=== PATIENT | male | born 1965 | race Caucasian/White ===

== ENCOUNTER 2018-12-23 10:24 | Observation (INO) | payer MEDICARE ==
[2018-12-23] VITALS (7 sets, daily range): BP systolic 113–152; BP diastolic 60–90; Ht 175.3 cm; Wt 135.5 kg
[~2018-12-23] VITALS: Ht 175.3 cm; Wt 135.5 kg
--- NOTE | ~2018-12-23 | ST ---
PATIENT:LANNY WILLIS III MEDICAL RECORD: [id number] SEX: M LOCATION:D. D.212 ORDER #: ADMISSION DATE: 12/23/18 AGE OF PATIENT: 53 REFERRING PHYSICIAN: INTERPRETING PHYSICIAN: REENA ALEXANDER MD DATE OF SERVICE: 12/24/2018 Nuclear Stress Test INDICATIONS: Angina, cardiomyopathy. He was exercised on standard Lexiscan protocol with 28 mCi of sestamibi injected at peak stress, 9 mCi used previously for rest images. FINDINGS: Gated SPECT reveals a dilated cardiomyopathy, ejection fraction markedly reduced at 33%. SPECT Imaging: Cardiolite was used as myocardial perfusion agent. There is reversibility inferiorly as well as anteriorly, which includes the basal, mid, apical anterior segments as well as the inferior basal, mid and apical segments. The degree of reversibility is mild. The amount of myocardium involved is large. OVERALL IMPRESSION: High-risk nuclear stress test revealing an ischemic cardiomyopathy, ejection fraction 33% with LV dilatation and reversibility anteriorly and inferiorly, possibly suggestive of multivessel coronary artery disease making this a high-risk nuclear stress test. Would proceed with coronary angiography as followup study. TRANSINT:[id number] Voice Confirmation ID: [id number] DOCUMENT ID: [id number] REENA ALEXANDER MD CC: [id number] DICTATION DATE: 12/24/18 1710 METALSMITH APPRENTICE: 12/25/18 0026 ADM IN [facility] [address] [id number]
--- NOTE | ~2018-12-23 | OP ---
PATIENT NAME: LANNY WILLIS III MEDICAL RECORD: [id number] :67 LOCATION:D.M2 D.2121 ADMISSION DATE:12/23/18 SURGEON: REENA ALEXANDER MD DATE OF OPERATION: 12/25/2018 PROCEDURES: 1. Left heart catheterization. 2. Selective coronary angiography. 3. Left ventriculogram. INDICATION: Cardiomyopathy, abnormal nuclear stress test, supraventricular tachycardia. PROCEDURE IN DETAIL: After informed consent was obtained and after a detailed description of risks, benefits as well as alternative therapies, the patient elected to proceed with angiogram and heart catheterization. Right radial area was prepped and draped in normal sterile fashion. Right radial artery was cannulated via modified Seldinger technique with placement of 5-Swedish sheath. All catheters exchanged through this sheath. FINDINGS: Left ventriculogram was performed in standard 30-degree SIMON view reveals dilated cardiomyopathy, ejection fraction 35%. SELECTIVE CORONARY ANGIOGRAPHY: Left main, left anterior descending, left circumflex, right coronary artery are all smooth-walled vessels with no angiographic evidence of coronary artery disease. OVERALL IMPRESSION: 1. No angiographic evidence of coronary artery disease. 2. Nonischemic cardiomyopathy, ejection fraction 35%. Center medical management and treatment of hypertension and cardiomyopathy. TRANSINT:[id number] Voice Confirmation ID: [id number] DOCUMENT ID: [id number] REENA ALEXANDER MD CC: [id number] DICTATION DATE: 12/25/18899 DIRECTOR SPECIALTY: 12/25/18 1157 DIS IN 12/25/18 [facility] [address] [place] [address]
--- NOTE | ~2018-12-23 | EC ---
PATIENT:LANNY WILLIS III DATE OF SERVICE: 12/23/18 SEX: M MEDICAL RECORD: [id number] DATE OF : 67 LOCATION:D.M2 D.212 AGE OF PATIENT: 53 ADMISSION DATE: 12/23/18 REFERRING PHYSICIAN: INTERPRETING PHYSICIAN: REENA HUMPHREY MD ECHOCARDIOGRAM REPORT ECHO CHARGES 4 ECHO COMPLETE Date: 12/23/18 CLINICAL DIAGNOSIS: SVT ECHOCARDIOGRAPHIC MEASUREMENTS (adult normal given) AC root (d.<3.7cm) 3.4 cm LV Septum d (<1.2 cm> 0.8 cm Valve Excursion 2.2 cm LV Septum (systole) 1.0 cm Left Atria (s.<4.0cm> 5.1 cm LVPW d(<1.2cm) 2.2 cm RV (d.<2.3cm) 3.8 cm LVPW (sytole) 2.6 cm LV diastole(<5.6CM) 7.8 cm MV E-F(>70mm/sec) cm LV systole 6.7 cm LVOT Diameter 1.8 cm MV exc.(>10mm) cm Est.ejection fraction (50-75%) % DOPPLER: LVIT cm/sec A 29 cm/sec E 84 cm/sec LA cm/sec RVSP 23.0 mmHg LVOT 63 cm/sec AOP1/2T m/s Asc. Ao 131 cm/sec RVOT 46 cm/sec RA cm/sec PA 63 cm/sec AV Gradient Peak 6.8 mmHg AV Mean 4.4 mmHg AV Area 1.4 cm MV Gradient Peak 3.6 mmHg MV Mean 1.3 mmHg MV Area cm COMMENTS: Autocad Designer: Deandre PHILLIPS Qa Manager: 1 Dr. Humprhey TAPE# PACS Pericardial Effusion N DATE OF SERVICE: 12/23/2018 FINDINGS: 1. Left ventricular chamber size is moderately dilated. Left ventricular systolic function is mildly reduced. Overall ejection fraction is 40%. 2. Left atrium is enlarged at 5.1 cm. Right atrium and right ventricular chamber sizes are as well mildly dilated. 3. Valvular structures have normal structure and motion. 4. Doppler interrogation reveals ggci-vz-uhuycuus mitral regurgitation and mild tricuspid regurgitation. No other valvular insufficiency or stenosis. ECHOCARDIOGRAM REPORT [id number] LANNY WILLIS III Pulmonary systolic pressure is estimated at 23 mmHg. 5. No evidence of pericardial effusion or left ventricular thrombus. TRANSINT:[id number] Voice Confirmation ID: [id number] DOCUMENT ID: [id number] REENA HUMPHREY MD CC: [id number] DICTATION DATE: 12/23/18 1446 SENIOR RESIDENT CARE DIRECTOR: 12/23/18 1709 ADM IN [facility] [address] [place] [address]
--- NOTE | ~2018-12-23 | HEMODYNAMI ---
PATIENT:LANNY WILLIS III MEDICAL RECORD: [id number] : 67 LOCATION:[facility] D.2121 [facility]# [id number] ADMISSION DATE: 12/23/18 Generatedon:12/25/20188:59 Patient name: LANNY WILLIS Patient #: [id number] SSN: [id number] : 1965 Date of study: 12/25/2018 Page: Of Hemodynamic Procedure Report Patient Data Patient Demographics Procedure consent was obtained First Name: LANNY Gender: Male Last Name: LAZARO Suffix: TERRENCE Middle Initial: M : 1965 Patient #: [id number] Age: 53 year(s) Race: SSN: [id number] Additional ID: [id number] Contact details [address]: [address] [place] [address] State: [place] City: [place] Zip code: [address] Admission Admission Data Admission Date: 12/23/2018 Admission Time: 12:21 Arrival Date: 12/23/2018 Arrival Time: 12:21 Admit Source: Other Insurance Payor: Private Room #: D.2121 health insurance Height (in.): 68.9 BSA: 2.44 (m2) Height (cm.): 175 BMI: 44.08 (kg/m2) Weight (lbs.): 297.63 Weight (kg.): 135 Lab Results Lab Result Date: 12/25/2018 Lab Result Time: 0:00 Biochemistry Name Units Result Min Max BUN mg/dl 6 -*(----)-- 7 18 Creatinine mg/dl 0.9 --(-*--)-- 0.6 1.3 CBC Name Units Result Min Max Hemoglobin g/dl 17 --(---*)-- 13.5 17.5 Procedure Procedure Types Cath Procedure Diagnostic Procedure LHC LHC w/Coronaries Sedation Charges Moderate Sedation up to 15 minutes Procedure Description Procedure Date Procedure Date: 12/25/2018 Procedure Start Time: 8:50 Procedure End Time: 8:57 Procedure Staff Name Function Ben Humphrey MD Performing Physician Jina Mcgowan RT Monitor Maryan Matos RT Scrub Sandra Roberto RN Nurse Procedure Data Cath Procedure Fluoroscopy Diagnostic fluoroscopy Total fluoroscopy Time: 1.1 time: 1.1 min min Diagnostic fluoroscopy Total fluoroscopy dose: 391 dose: 391 mGy mGy Contrast Material Contrast Material Type Amount (ml) Isovue 300 34 Entry Location Entry Primary Successful Side Size Upsize Upsize Entry Closure Hernandez ccessful Closure Location (Fr) 1 (Fr) 2 (Fr) Remarks Device Remarks Radial Right 6 Fr Mechanical artery Short Compression Estimated blood loss: 5 ml Diagnostic catheters Device Type Used For End Catheter Placement DIAGNOSTIC [place] 110cm 5 Multi-vessel Fr catheter ([id number]) Angiography Procedure Complications No complications Procedure Medications Medication Administration Route Dosage 0.9% NaCl I.V. 100 ml/hr Oxygen etCO2 Nasal cannula 2 l/min Lidocaine 2% added to field 20 Heparin Flush Bag added to field 2 bags (1000units/500ml NS) Radial Cocktail added to field 1 syringe (Verapamil 2mg/Nitro 400mcg/Heparin 1500units) Versed I.V. 2 mg Fentanyl I.V. 50 mcg Versed I.V. 2 mg Fentanyl I.V. 50 mcg Hemodynamics Rest BSA: 2.44 (m2) HGB: 17 (g/dl) O2 Consumption: Estimated: 322.97 (ml/min) O2 Cons umption indexed: Estimated:132.36 (ml/min/m) Heart Rate: 105 (bpm) Pressure Samples Time Site Value (mmHg) Purpose Heart Use Rate(bpm) 8:53 LV 55/49,50 Snapshot 104 Snapshots Pre Cath Intra NCS Post Cath Vital Signs Time Heart Resp SPO2 etCO2 NIBP (mmHg) Rhythm Pain Sedation Rate (ipm) (%) (mmHg) Status Level (bpm) 8:24:29 111 20 95 30.7 158/116(131) NSR 0 (11) 10(A) , No pain 8:28:45 109 19 95 31.4 152/116(131) NSR 0 (11) 10(A) , No pain 8:32:53 101 21 96 26.9 153/105(127) NSR 0 (11) 10(A) , No pain 8:37:01 100 19 95 31.4 151/111(129) NSR 0 (11) 10(A) , No pain 8:41:07 102 18 95 29.9 152/109(122) NSR 0 (11) 10(A) , No pain 8:45:12 104 21 96 33.7 152/113(134) NSR 0 (11) 10(A) , No pain 8:49:18 108 18 96 32.2 153/113(131) NSR 0 (11) 10(A) , No pain 8:53:24 102 19 96 30.7 145/106(124) NSR 0 (11) 10(A) , No pain 8:57:28 103 19 88 26.9 143/104(123) NSR 0 (11) 10(A) , No pain Medications Time Medication Route Dose Verified Delivered Reason Notes Ef fectiveness by by 8:23:27 0.9% NaCl I.V. 100 Ben Sandra used for ml/hr Kam Roberto offset lithographic press setter 8:23:33 Oxygen etCO2 2 l/min Ben Sandra used for Nasal Kam Roberto procedure cannula RN 8:23:38 Lidocaine 2% added 20ml Ben Ben for local to vial Kam Humphrey MD anesthetic field 8:23:44 Heparin Flush added 2 bags Benphil Contreras used for Bag to Kam Humphrey MD procedure (1000units/500ml field NS) 8:23:49 Radial Cocktail added 1 Ben Ben used for (Verapamil to syringe Kam Humphrey MD procedure 2mg/Nitro field 400mcg/Heparin 1500units) 8:50:37 Versed I.V. 2 mg Ben Sandra for Kam Roberto sedation RN 8:50:42 Fentanyl I.V. 50 mcg Ben Sandra for Kam Roberto sedation RN 8:54:31 Versed I.V. 2 mg Ben Sandra for Kam Roberto sedation RN 8:54:38 Fentanyl I.V. 50 mcg Ben Sandra for Kam Roberto sedation reset merchandiser Log Time Note 7:53:19 Diagnostic Cath Status : Elective 7:55:33 ACC Patient presents with Non-STEMI CCS Anginal Class 3--Marked limitation of physical activity, angina occurs with ordinary activity.. 7:56:06 Procedure Status Urgent Heart Cath (IP). 7:57:30 Jina Mcgowan RT(R) sent for patient. Start room use. 7:57:31 Time tracking: Regular hours (M-F 7:00 - 5:00) 7:57:36 Plan of Care:Hemodynamics will remain stable., Cardiac rhythm will remain stable., Comfort level will be maintained., Respiratory function will remain adequate., Patient/ family verbilizes understanding of procedure., Procedure tolerated without complication., Recovers from procedure without complications.. 7:58:44 Informed consent obtained and on chart 8:00:40 Admit Source: Other 8:00:43 Arrival Date: 12/23/2018 12:21:00 PM 8:01:07 Insurance Payor : Private health insurance 8:02:31 Patient Weight : 297.63 lbs 8:02:55 Patient Height : 68.9 inches 8:03:36 Lab Result : Creatinine 0.9 mg/dl 8:03:36 Lab Result : BUN 6 mg/dl 8:03:36 Lab Result : Hemoglobin 17 g/dl 8:23:14 Vital chart was started 8:23:27 0.9% NaCl 100 ml/hr I.V. was administered by Sandra Roberto RN; used for procedure; 8:23:33 Oxygen 2 l/min etCO2 Nasal cannula was administered by Sandra Roberto RN; used for procedure; 8:23:38 Lidocaine 2% 20ml vial added to field was administered by Ben Humphrey MD; for local anesthetic; 8:23:44 Heparin Flush Bag (1000units/500ml NS) 2 bags added to field was administered by Ben Humphrey MD; used for procedure; 8:23:49 Radial Cocktail (Verapamil 2mg/Nitro 400mcg/Heparin 1500units) 1 syringe added to field was administered by Ben Humphrey MD; used for procedure; 8:30:53 Patient received from Med II to CCL 2 Alert and oriented. Tansferred to table in Supine position. 8:30:54 Warm blankets applied, and kizzy hugger turned on for patient comfort. 8:30:54 Correct patient and procedure confirmed by team. 8:30:55 ECG and BP/O2 sat monitors applied to patient. 8:30:56 Baseline sample Acquired. 8:31:06 Rhythm: sinus tachycardia 8:31:08 Full Disclosure recording started 8:31:28 H&P Date Dictated: 12/25/2018 New H&P dictated by physician.. 8:31:30 Pre-procedure instructions explained to patient. 8:31:30 Pre-op teaching completed and patient verbalized understanding. 8:31:32 Family in waiting room. 8:31:34 Patient NPO since Midnight. 8:31:36 Is the patient allergic to Iodine/contrast media? No. 8:31:44 Was the patient premedicated? No 8:31:46 Is patient on blood thinner?No 8:31:49 Patient diabetic? No. 8:33:07 Previous problem with sedation/anesthesia? No ? 8:33:09 Snore? Yes 8:33:11 Sleep apnea? No 8:33:12 Deviated septum? No 8:33:12 Opens mouth fully? Yes 8:33:14 Sticks out tongue? Yes 8:33:17 Airway obstruction? No ? 8:33:21 Dentures? No ? 8:33:54 Pre procedure: right dorsailis pedis pulse 2+ Normal; easily identifiable; not easily obliterated 8:33:58 Pre procedure: left dorsailis pedis pulse 2+ Normal; easily identifiable; not easily obliterated 8:34:00 Patient pain scale 0/10 ?. 8:34:24 IV patent on arrival in left forearm with 0.9% NaCl at [facility]. 8:34:26 Lab results completed and on chart. 8:34:41 Right Radial & Right Groin area was prepped with chlora-prep and draped in sterile fashion 8:34:42 Alarms reviewed by R. N. 8:34:42 Sharps counted by scrub and verified by R.N. 8:43:00 Physician paged 8:50:12 Physician arrived 8:50:12 --------ALL STOP TIME OUT------ 8:50:13 Final Timeout: patient, procedure, and site verified with staff and physician. All members of the team are in agreement. 8:50:15 Right Radial & Right Groin site verified by team. 8:50:18 Fire Safety Assessment: A--An alcohol-based skin anteseptic being used preoperatively., C--Open oxygen or nitrous oxide is being used., D--An ESU, laser, or fiber-optic light is being used. 8:50:21 Physical assessment completed. ASA score P 2 - A patient with mild systemic disease as per Ben Humphrey MD. 8:50:32 1) 90+ Normal kidney functon but urine findings or structural abnormalities or genetic trait point to kidney disease. 8:50:37 Versed 2 mg I.V. was administered by Sandra Roberto RN; for sedation; 8:50:37 Maximum allowable contrast dose (3.7 X eGFR X 0.75)250 ml. 8:50:40 Sedation plan: IV Moderate Sedation Medication:Versed, Fentanyl 8:50:42 Fentanyl 50 mcg I.V. was administered by Sandra Roberto RN; for sedation; 8:50:43 Procedure started. 8:50:53 Local anesthetic to right radial artery with Lidocaine 2% by Ben Humphrey MD.INITIAL ACCESS ONLY 8:51:02 A 6 Fr Short sheath was inserted into the Right Radial artery 8:51:06 Use device set Radial Dx or PCI 8:51:08 ACIST Syringe (82188) opened to sterile field. 8:51:08 Medline Cath Pack ([id number]) opened to sterile field. 8:51:08 Bag Decanter (2002S) opened to sterile field. 8:51:09 ACIST Hand Control (34709) opened to sterile field. 8:51:09 ACIST Manifold (04279) opened to sterile field. 8:51:09 Tegaderm 4 x 4 (1626W) opened to sterile field. 8:51:10 MBrace Wrist Support ([id number]) opened to sterile field. 8:51:11 SHEATH 6FR RAIN (7652155) opened to sterile field. 8:51:12 EMERALD Guide Wire (358-945) opened to sterile field. 8:51:34 A DIAGNOSTIC [place] 110cm 5 Fr catheter (858959) was advanced over the wire and used for Multi-vessel Angiography. 8:53:53 LV hemodynamics recorded. 8:53:58 LV gram done using SIMON 8:54:02 Injector settings: Ml/sec: 5, Volume: 15, 8:54:09 EF : 35 % 8:54:24 LCA angiography performed. 8:54:27 Injector settings: Ml/sec: 3, Volume: 6, 8:54:31 Versed 2 mg I.V. was administered by Sandra Roberto RN; for sedation; 8:54:38 Fentanyl 50 mcg I.V. was administered by Sandra Roberto RN; for sedation; 8:55:04 RCA angiography performed. 8:55:07 Injector settings: Ml/sec: 3, Volume: 6, 8:55:11 ACCDominant side:Co-Dominant 8:55:33 Catheter removed. 8:55:43 TR BAND Large ([id number]) opened to sterile field. 8:56:01 Sheath removed intact; hemostasis achieved with Mechanical Compression to the Right Radial artery. 8:56:05 Procedure ended.(Physican Out) 8:56:16 Fluoroscopy time 01.10 minutes. 8:56:20 Fluoroscopy dose: 391 mGy 8:56:20 Flurop Dose total: 391 8:56:33 Dose Area Product 87436 mGy/cm. 8:56:37 Contrast amount:Isovue 300 34ml. 8:56:39 Sharps counted by scrub and verified by R.N. 8:56:41 TR band inflated with 10cc of air. 8:56:44 Insertion/operative site no bleeding no hematoma. 8:56:52 Post right radial artery:stable 8:56:53 Post Procedure Pulses reassessed and unchanged 8:56:56 Post procedure rhythm: unchanged. 8:56:58 Estimated blood loss: 5 ml 8:57:00 Post procedure instruction explained to patient.Patient verbalizes understanding. 8:57:00 Patient needs reinforcement of post procedure teaching. 8:57:08 Procedure type changed to Cath procedure, Diagnostic procedure, LHC, LHC w/Coronaries, Sedation Charges, Moderate Sedation up to 15 minutes 8:57:10 Procedure and supply charges have been captured, reviewed, submitted and are correct. 8:57:14 Procedure Complication : No complications 8:57:16 Vital chart was stopped 8:57:17 See physician's report for complete and final results. 8:57:19 Report given to Pre/Post Procedure Room. 8:57:22 Patient transfered to Pre/Post Procedure Room with Stretcher. 8:57:25 Procedure ended. 8:57:25 Full Disclosure recording stopped 8:57:28 End room use (Document Last) Device Usage Item Name Manufacture Quantity Catalog Hospital Part Current Minima l Lot# / Number Charge Number Stock Stock Serial# Code ACIST [facility] 1 80208 [id number] 690684 103790 20 Syringe Medical (21987) Systems Inc Medline Medline 1 [id number] 125642 18896 567706 5 Cath Pack ([id number]) Bag Microtek 1 2001S 630278 57136 038976 5 Decanter Medical Inc. () ACIST Hand Acist 1 50189 108401 719374 641591 5 Control Medical (13821) Systems Inc ACIST Acist 1 66694 564213 845589 507774 5 Manifold Medical (48187) Systems Inc Tegaderm 4 3M 1 1626W 591913 368761 072684 5 x 4 (1626W) MBrace Advanced 1 140-0250-00 526819 24750 182495 5 Wrist Vascular Support Dynamics ([id number]) SHEATH 6FR Cardinal 1 [id number] 113410 3718369 667033 5 [facility] (9248660) EMERALD Cardinal 1 370-105 723882 427193 755656 5 Guide Wire Health (622-720) DIAGNOSTIC Terumo 1 40-5452 519065 936021 746452 5 [place] 110cm 5 Fr catheter (934901) TR BAND Terumo 1 UXF60-FSH 343794 148167 864974 40 Large ([id number]) Signature Audit [place] Stage Time Signature Unsigned Intra-Procedure 12/25/2018 Jina Mcgowan 8:58:46 AM RT(R) Signatures Performing Physician : Signature : Ben Humphrey MD Date : Time : Monitor : Jina Mcgowan RT Signature : Date : Time : Nurse : Sandra Roberto RN Signature : Date : Time : [place] [id number] [place] [address]
--- NOTE | ~2018-12-23 | DS ---
PATIENT:LANNY WILLIS III :67 MEDICAL RECORD: [id number] DISCHARGE SUMMARY ADMISSION DATE: 12/23/18 DISCHARGE DATE: 12/25/18 DATE OF DISCHARGE: 12/25/2018 DISCHARGE DIAGNOSES: 1. Supraventricular tachycardia. 2. Nonischemic cardiomyopathy. 3. Hypertension. HOSPITAL COURSE: Mr. Willis presents with supraventricular tachycardia and angina, underwent cardiac catheterization revealing a nonischemic cardiomyopathy, ejection fraction 35%, but no coronary artery disease, was discharged home on Coreg 25 mg b.i.d., lisinopril/HCT 20/12.5 b.i.d. He will follow up with [facility] in 1 month. TRANSINT:[id number] Voice Confirmation ID: [id number] DOCUMENT ID: [id number] REENA ALEXANDER MD CC: [id number] DICTATION DATE: 12/25/18900 COPPER TAPPER: 12/25/182151 DIS IN 12/25/18 [facility] [address] [place] [address]
[2018-12-23] MEDS ORDERED: ZYLOPRIM300 MG PO (10:39)
[2018-12-23] MEDS ORDERED: PRILOSEC (10:40)
[2018-12-23] MEDS ORDERED: CARDIZEM CD240 MG PO (10:57)
[2018-12-23 11:01] LABS: APTT 26.8 SECONDS (22.8-39.4); INR 1.12 (0.85-1.17); PROTIME 13.9 SECONDS (11.6-15.0)
[2018-12-23 11:05] LABS: ALBUMIN 3.6 g/dL (3.4-5.0); ALKALINE PHOSPHATASE 119 U/L (46-116); ALT (SGPT) 35 U/L (10-68); BILIRUBIN - TOTAL 0.62 mg/dL (0.2-1.3); CALC OSMOLALITY 274 mosm/kg (275-300); CALCIUM 8.3 mg/dL (8.5-10.1); CARBON DIOXIDE 23.6 mmol/L (21.0-32.0); CHLORIDE - SERUM 103 mmol/L (98-107); CREATININE - SERUM 0.9 mg/dL (0.6-1.3); GLUCOSE 158 mg/dL (74-106); POTASSIUM - SERUM 3.6 mmol/L (3.5-5.1); SODIUM 137 mmol/L (136-145); UREA NITROGEN 6 mg/dL (7-18); eGFR NON AFRICAN AMERICAN > 90 mL/min (90-120)
[2018-12-23 11:12] LABS: T4 THYROXIN - FREE 1.31 ng/dL (0.76-1.46); T4 THYROXINE 10.1 ug/dL (4.7-13.3)
[2018-12-23 11:13] LABS: HEMATOCRIT 48.7 % (42.0-54.0); MCH 33.8 pg (26.0-34.0); MCHC 34.9 g/dL (31.0-37.0); MCV 96.8 fL (80.0-100.0); NEUTROPHILS 49.2 % (40-80); PLATELET COUNT 184 10x3/uL (130-400); RBC 5.03 10x6/uL (4.20-6.10); RDW 13.9 % (11.5-14.5); WBC 7.4 10x3/uL (4.8-10.8)
[2018-12-23 11:16] LABS: CKMB 1.7 U/L (0.0-3.6); CREATINE KINASE 147 UL (21-232); MAGNESIUM - SERUM 1.8 mg/dL (1.8-2.4)
[2018-12-23 11:18] LABS: TROPONIN-I < 0.017 ng/mL (0.000-0.060)
[2018-12-23 12:32] LABS: THYROID STIMULATING HORMONE 1.51 uIU/mL (0.36-3.74)
--- NOTE | 2018-12-23 13:08 | NUR ---
RECIEVED FROM ER. ALERT AND ORIENTED. DENIES ANY PAIN OR OTHER NEEDS. SL TO RIGHT AC. TELEMERTY SHOWS ST 101. UP IN CHAIR WITH CALL LIGHT IN REACH
--- NOTE | 2018-12-23 15:34 | NUR ---
ASSESSMENT COMPLETE AT THIS TIME NAD NOTED
--- NOTE | 2018-12-23 17:38 | NUR ---
PT MAY STAY ANOTHER NIGHT PER DR. ALEXANDER.
--- NOTE | 2018-12-23 17:44 | NUR ---
LYING QUIETLY WITH FAMILY AT BEDSIDE. NO NEEDS VOICED
[2018-12-23 18:10] LABS: CKMB 1.4 U/L (0.0-3.6); CREATINE KINASE 112 UL (21-232); TROPONIN-I 0.034 ng/mL (0.000-0.060)
--- NOTE | 2018-12-23 18:46 | NUR ---
.PT UP IN BEDSIDE CHAIR. NPO AFTER MN FOR STRESS TEST. TELEMERTY SHOWS SR
--- NOTE | 2018-12-23 20:05 | NUR ---
RECIEVED SITTING UP IN CHAIR. ALERT AND ORIENTED X4 UP AD JANAE. TELEMETRY IN PLACE WITH HR 106 SINUS TACH.. LUNG SOUNDS CLEAR BILAT.. ABSX4. NO EDEMA OBSERVED. ABD APPEARS DISTENDED. DENIES ANY NEEDS AT THIS TIME.
--- NOTE | 2018-12-23 22:26 | NUR ---
UP AMBULATING IN HALLWAYS.
[2018-12-23 23:00] LABS: CKMB 1.5 U/L (0.0-3.6); CREATINE KINASE 122 UL (21-232); TROPONIN-I 0.031 ng/mL (0.000-0.060)
[2018-12-24 01:05] VITALS: BP 135/77
[2018-12-24 05:36] VITALS: BP 121/91
--- NOTE | 2018-12-24 07:41 | NUR ---
ASSESSMENT DONE. DENIES NEEDS
[2018-12-24 08:32] VITALS: BP 155/101
--- NOTE | 2018-12-24 09:57 | NUR ---
I have reviewed this patient and I concur with the Shift Assessment completed by the Licensed Practical Nurse today this shift.
[2018-12-24 12:43] VITALS: BP 150/107
[2018-12-24 16:14] VITALS: BP 161/92
--- NOTE | 2018-12-24 18:26 | NUR ---
WITHOUT CHANGES OR DISTRESS NOTED AT THIS TIME. DENIES NEEDS
--- NOTE | 2018-12-24 19:27 | NUR ---
REPORT RECEIVED, WILL CPOC. PATIENT IS A&O, UP AD JANAE, FAMILY AT BEDSIDE. CURRENTLY SITTING IN CHAIR, NO S/SX OF DISTRESS NOTED, RR EVEN AND UNLABORED, ST ON MONITOR. PATIENT HAS RT AC THAT IS SL, PATENT, DRSG IS C/D/I. INFORMED PATIENT IS HE NPO AFTER MIDNIGHT. HE REQUESTED A SHOWER AT SOME POINT TONIGHT. PATIENT DENIES FURTHER NEEDS AT THIS TIME. CL IN REACH, BED LOCKED AND LOWERED. WILL CTM.
--- NOTE | 2018-12-24 20:55 | NUR ---
PATIENT BLOOD PRESSURE WAS 177/11 LOPRESSOR WAS NO GIVEN ON DAY SHIFT. ADMINISTERED LOPRESSOR. WILL RECHECK BP IN 1HR. PATIENT DENIES FURTHER NEEDS AT THIS TIME. CL IN REACH. WILL CTM.
--- NOTE | 2018-12-24 22:23 | NUR ---
REMOVED TELEMTRY FOR SHOWER, ASPHALT DISTRIBUTOR OPERATOR NOTIFIED.
[2018-12-25 04:00] VITALS: BP 146/98
--- NOTE | 2018-12-25 07:16 | NUR ---
REPORT RECEIVED. WILL CONTINUE WITH POC. PT CURRENTLY SITTING UP IN CHAIR. AT BEDSIDE. CALL LIGHT W/I REACH. PT IS AAO AND UP AD JANAE. RR EVEN AND UNLABORED ON RA. PT IS NPO FOR HEART CATH THIS AM. NO S/S OF DISTRESS NOTED. PIV IS SALINE LOCKED. PT DENIES ANY NEEDS AT THIS TIME. WILL CTM.
--- NOTE | 2018-12-25 08:14 | NUR ---
PREOP MEDICATIONS ADMINISTERED PER CLIP LOADING MACHINE FEEDER REQUEST. PT TRANSFERED TO CLIP LOADING MACHINE FEEDER. WILL CTM.
[2018-12-25 08:21] VITALS: BP 152/100
--- NOTE | 2018-12-25 08:56 | HP ---
PATIENT: LANNY WILLIS III MEDICAL RECORD: [id number] ACCOUNT: [id number] LOCATION:[address] : 67 ADMISSION DATE: 12/23/18 PCP: TIFFANY GERBER HISTORY AND PHYSICAL EXAMINATION DIAGNOSES: 1. Angina. 2. Shortness of breath, dyspnea on exertion. 3. Supraventricular tachycardia. HISTORY OF PRESENT ILLNESS: Mr. Willis has been having shortness of breath as well as chest pressure. He was set to see a electrocardiograph repairer because the shortness of breath is worsening. He presented today with worsening shortness of breath, chest pressure, and palpitation. He is noted to be in an SVT, heart rate over 200. He was given adenosine with no results and was given IV Cardizem, this broke him to a sinus tachycardia. His EKG is with no acute ST-T abnormalities throughout this whole episode. Initial troponin was normal. PHYSICAL EXAMINATION: GENERAL APPEARANCE: Well-nourished, well-developed, appears stated age. Level of distress, comfortable. PSYCHIATRIC: Mental status, alert, normal affect. Orientation, oriented to time, place and person. EYES: Lids and conjunctiva, noninjected. No discharge, no pallor. ENT: Lips, teeth, gums, normal dentition. Oropharynx, no cyanosis, no pallor. NECK: Carotid arteries, bilateral normal upstroke, no bruits, no thrills. JUGULAR VEINS: No jugular venous pressure or distention. CERVICAL LYMPH NODES: Nontender, nonenlarged. THYROID: Not enlarged. Nontender. No nodules. LUNGS: Respiratory effort, unlabored. CHEST: Normal curvature. No thoracic deformity. No chest wall tenderness. Percussion, resonant. Auscultation, clear. No wheezes, no rales, no rhonchi. CARDIOVASCULAR: Precordial exam, nondisplaced. No heaves or pericardial thrills. Rate and rhythm, regular. Heart sounds, normal S1, normal S2. No S3, no gallop, no rub. Systolic murmur, not heard. Diastolic murmur, not heard. EXTREMITIES: No cyanosis, no edema. Peripheral pulses, full and equal in all extremities, except as noted. No bruits appreciated. ABDOMEN: Soft, nondistended. Normal aorta. No bruit. Nontender. No masses. Liver, nontender, no hepatomegaly. Spleen, nontender, no splenomegaly. MUSCULOSKELETAL: No joint tenderness. No joint swelling. No erythema. NEUROLOGICAL: Normal gait, normal strength, normal tone. SKIN: Warm and dry. OVERALL IMPRESSION: Supraventricular tachycardia with angina and shortness of breath. We will risk stratify with stress testing, Cardiolite imaging, as well get an echocardiogram. Start him on Toprol 25 mg every day. TRANSINT:[id number] Voice Confirmation ID: [id number] DOCUMENT ID: [id number] HISTORY AND PHYSICAL [id number] LANNY WILLIS III, JEFFREY MD at 0856 CC: [id number] DICTATION DATE: 12/23/18 1258 [employer] ENGINEER[employer] OFFICER: 12/23/18 1309 ADM IN [place] [address] [place] [address]
--- NOTE | 2018-12-25 09:13 | NUR ---
PT RETURNED FROM [facility]. CLEAN CATH THROUGH RIGHT WRIST. WRIST IS C/D/I WITH NO S/S OF HEMATOMA PRESENT. PT DENIES ANY NEEDS. RR EVEN AND UNLABORED ON RA. NO S/S OF DISTRESS NOTED. WILL CTM.
[2018-12-25] MEDS ORDERED: COREG25 MG PO (09:58)
[2018-12-25] MEDS ORDERED: LISINOPRIL-HCT1 EAC7 PO (09:59)
--- NOTE | 2018-12-25 10:01 | NUR ---
PER PATIENT REQUEST, I CALLED HIS COREG AND LISINOPRIL HCT TO [facility]. SPOKE WITH JOSE-PHARMACIST.
--- NOTE | 2018-12-25 11:37 | NUR ---
PT DISCHARGED HOME VIA WHEELCHAIR WITH FAMILY. PIV REMOVED WITH CATHETER TIP FULLY INTACT. TELEMETRY REMOVED AND RETURNED. PT SIGNED PROPER DISCHARGE INSTRUCTION AND REMOVED ALL VALUABLES FROM THE ROOM.
--- NOTE | 2018-12-26 09:14 | MORECARE ---
CASE MANAGEMENT DISCHARGE SUMMARY PATIENT: LANNY WILLIS III UNIT: [id number] ADM DATE: 12/23/18 AGE: 53 : 67 SEX: M ROOM/BED: D.2121 AUTHOR: MARIANA CRAVEN PHYSICIAN: REFERRING PHYSICIAN: REENA ALEXANDER MD DATE OF SERVICE: 12/26/18 Discharge Plan Patient Name: LANNY WILLIS [facility] [facility] 1965 Planned Disposition: Home Anticipated Discharge Date: 12/25/18 Discharge Date: 12/25/2018 Expected LOS: 2 Initial Reviewer: [email or web address] Initial Review Date: 12/26/2018 Generated: 12/26/18 10:14 am Patient Name: LANNY WILLIS Page [id number] at 0914 All edits/amendments must be made on the electronic document DICTATION DATE: 12/26/18913 MARKET ANALYST: NEERAJ 12/26/18913 RPT#: [id number] DC DATE:12/25/18 STATUS: DIS IN [facility] [address] [place] [address] END OF REPORT
== END 2018-12-25 11:40 | disposition home or self-care (01) ==
LOC: D.ER 10:24 → D.M2 12:21 → OBSVTIME 12:22 → D.M2 12-25 11:40
PROVIDERS: Emergency Medicine; ADMIT Internal Medicine Interventional Cardiology; ATTEND Internal Medicine Interventional Cardiology
DX: I42.9 Cardiomyopathy, unspecified (principal); I10 Essential (primary) hypertension; I47.1 Supraventricular tachycardia